=== PATIENT | male | born 1975 | race African-American/Black ===

== ENCOUNTER 2022-03-17 15:53 | Emergency (ER) | payer SELFPAY ==
[~2022-03-17] VITALS: Ht 195.6 cm; Wt 210.0 kg
[2022-03-17] MEDS ORDERED: SODIUM CHLORIDE 0.9% 1,000 ML IV ONE (16:15)
[2022-03-17 16:41] LABS: BASOPHILS % 0.6 % (0.0-2.0); EOSINOPHILS % 0.7 % (0.0-5.0); HEMATOCRIT. 44.5 % (42.0-52.0); HEMOGLOBIN. 14.8 g/dL (14.0-18.0); LYMPHOCYTES % 15.5 % (20.0-50.0); MEAN CORPUSCULAR HEMOGLOBIN 31.9 pg (28.0-32.0); MEAN CORPUSCULAR VOLUME 96.1 fL (80.0-94.0); MEAN PLATELET VOLUME 8.4 fl (7.4-10.4); MONOCYTES % 6.7 % (2.0-8.0); NEUTROPHILS % 76.5 % (40.0-76.0); PLATELET 300 x1000/uL (130-400); RED BLOOD CELL COUNT 4.63 mill/uL (4.7-6.1)
[2022-03-17 17:38] LABS: CHLORIDE 104 mEq/L (98-107)
[2022-03-17 17:46] LABS: ETHANOL BLOOD 179 mg/dL
[2022-03-17 18:18] LABS: *AMPHETAMINES SCREEN URINE NEGATIVE (NEGATIVE); *BARBITURATES SCREEN URINE NEGATIVE (NEGATIVE); *BENZODIAZEPINES SCREEN URINE PRESUMTIVE POSITIVE (NEGATIVE); *COCAINE SCREEN URINE NEGATIVE (NEGATIVE); CANNABINOID URINE SCREEN NEGATIVE (NEGATIVE); METHADONE URINE SCREEN NEGATIVE (NEGATIVE); OPIATES URINE SCREEN NEGATIVE (NEGATIVE); PHENCYCLIDINE URINE SCREEN NEGATIVE (NEGATIVE)
[2022-03-17] MEDS ORDERED: CHLORDIAZEPOXIDE 25MG CAPSULE PO ONE (19:30)
[2022-03-17] MEDS ORDERED: SODIUM CHLORIDE 0.9% 500 ML IV ONE (20:45)
[2022-03-17 22:00] VITALS: BP 156/88
== END 2022-03-17 22:36 | disposition home or self-care (01) ==
LOC: ER 15:53
DX: F10.129 Alcohol abuse with intoxication, unspecified (principal); Y90.6 Blood alcohol level of 120-199 mg/100 ml
CPT/HCPCS: 36415; 80053; 80305; 80320; 82962; 85025; 96360; 99285; J7030; J7040; G0480

== ENCOUNTER 2022-06-16 17:02 | Emergency (ER) | payer OTHER ==
[~2022-06-16] VITALS: Ht 188 cm; Wt 101.0 kg
[2022-06-16 17:16] VITALS: BP 156/96
== END 2022-06-16 23:19 | disposition left against medical advice (07) ==
LOC: ER 17:02
DX: Z53.21 Procedure and treatment not carried out due to patient leaving prior to being seen by health care provider (principal); I50.9 Heart failure, unspecified

== ENCOUNTER 2022-06-26 14:15 | Inpatient (IN) | payer MEDICAID, OTHER ==
[~2022-06-26] VITALS: Ht 185.4 cm; Wt 93.9 kg
[2022-06-26] MEDS ORDERED: NITROGLYCERIN 0.4MG TABLET SL SL PRN (17:45)
[2022-06-26] MEDS ORDERED: ASPIRIN 325MG EC TABLET PO ONE (17:45)
[2022-06-26 17:54] LABS: BASOPHILS % 0.8 % (0.0-2.0); EOSINOPHILS % 1.1 % (0.0-5.0); HEMATOCRIT. 37.7 % (42.0-52.0); LYMPHOCYTES % 23.2 % (20.0-50.0); MEAN CORPUSCULAR HEMOGLOBIN 35.6 pg (28.0-32.0); MEAN CORPUSCULAR VOLUME 103.2 fL (80.0-94.0); MEAN PLATELET VOLUME 8.1 fl (7.4-10.4); MONOCYTES % 10.6 % (2.0-8.0); NEUTROPHILS % 64.3 % (40.0-76.0); PLATELET 286 x1000/uL (130-400); RED BLOOD CELL COUNT 3.65 mill/uL (4.7-6.1); RED CELL DISTRIBUTION WIDTH 14.8 % (11.6-14.6)
[2022-06-26 18:02] LABS: CHLORIDE 108 mEq/L (98-107)
[2022-06-26 18:05] LABS: PARTIAL THROMBOPLASTIN TIME 28.8 sec (23.4-31.0); PROTHROMBIN TIME 10.6 sec (9.6-11.0)
[2022-06-26 18:13] LABS: ETHANOL BLOOD 181 mg/dL
[2022-06-26] MEDS ORDERED: LIDOCAINE HCL/PF 1% 10 MG/ML 5ML VIAL ONE (18:13)
[2022-06-26] MEDS ORDERED: IODIXANOL 320MG/ML 100 ML BOTTLE IV ONE (18:13)
[2022-06-26] MEDS ORDERED: HEPARIN 1000 UNITS/ML 10ML ONE (18:13)
[2022-06-26 20:00] VITALS: BP 176/95
[2022-06-26] MEDS ORDERED: SODIUM CHLORIDE 0.45% 1,000 ML IV SCH ×2 (20:00→21:00)
[2022-06-26 21:00] LABS: BG BASE EXCESS 1.8 mmol/L (-2.0-2.0); BG CARBOXYHEMOGLOBIN 2.4 % (0.5-1.5); BG DEOXYHEMOGLOBIN 7.4 % (0.0-5.0); BG HCO3 ACT 28.7 mmol/L (22.0-26.0); BG METHEMOGLOBIN 0.4 % (0.0-1.5); BG OXYGEN SATURATION 92.4 % (92.0-98.5); BG OXYHEMOGLOBIN 89.8 % (94.0-97.0); BG PCO2 54.4 mmHg (35.0-45.0); BG PO2 70.5 mmHg (75.0-100.0); BG SAMPLE SITE LEFT RADIAL; BG TOTAL HEMOGLOBIN 13.8 g/dL (12.0-18.0); BG VENT MODE NASAL CANNULA
[2022-06-26] MEDS ORDERED: ATROPINE SULFATE 1MG/10ML SYR IV PRN (21:00)
[2022-06-26] MEDS ORDERED: ACETAMINOPHEN 325MG TABLET PO PRN (21:00)
[2022-06-26 21:27] LABS: BASOPHILS % 1.7 % (0.0-2.0); EOSINOPHILS % 0.9 % (0.0-5.0); HEMOGLOBIN. 13.1 g/dL (14.0-18.0); LYMPHOCYTES % 26.7 % (20.0-50.0); MEAN CORPUSCULAR HEMOGLOBIN 35.8 pg (28.0-32.0); MEAN CORPUSCULAR VOLUME 103.8 fL (80.0-94.0); MEAN PLATELET VOLUME 8.1 fl (7.4-10.4); MONOCYTES % 11.6 % (2.0-8.0); NEUTROPHILS % 59.1 % (40.0-76.0); PLATELET 282 x1000/uL (130-400); RED BLOOD CELL COUNT 3.66 mill/uL (4.7-6.1); RED CELL DISTRIBUTION WIDTH 14.6 % (11.6-14.6)
[2022-06-26 21:42] LABS: CHLORIDE 108 mEq/L (98-107)
[2022-06-26 22:34] LABS: *AMPHETAMINES SCREEN URINE NEGATIVE (NEGATIVE); *BARBITURATES SCREEN URINE NEGATIVE (NEGATIVE); *BENZODIAZEPINES SCREEN URINE PRESUMTIVE POSITIVE (NEGATIVE); *COCAINE SCREEN URINE NEGATIVE (NEGATIVE); CANNABINOID URINE SCREEN NEGATIVE (NEGATIVE); METHADONE URINE SCREEN NEGATIVE (NEGATIVE); OPIATES URINE SCREEN NEGATIVE (NEGATIVE); PHENCYCLIDINE URINE SCREEN NEGATIVE (NEGATIVE)
[2022-06-27] VITALS: BP 159/94
[2022-06-27 04:00] VITALS: BP 168/100
[2022-06-27 06:45] LABS: BASOPHILS % 0.8 % (0.0-2.0); HEMATOCRIT. 37.3 % (42.0-52.0); HEMOGLOBIN. 13.1 g/dL (14.0-18.0); LYMPHOCYTES % 19.1 % (20.0-50.0); MEAN CORPUSCULAR HEMOGLOBIN 36.2 pg (28.0-32.0); MEAN CORPUSCULAR VOLUME 103.3 fL (80.0-94.0); MONOCYTES % 11.6 % (2.0-8.0); NEUTROPHILS % 67.5 % (40.0-76.0); PLATELET 283 x1000/uL (130-400); RED BLOOD CELL COUNT 3.61 mill/uL (4.7-6.1); RED CELL DISTRIBUTION WIDTH 14.9 % (11.6-14.6)
[2022-06-27 07:06] LABS: CHLORIDE 106 mEq/L (98-107)
[2022-06-27] MEDS ORDERED: HYDROCODONE/ACETAMINOPHEN 10/325MG TABLET PO PRN ×2 (07:45)
[2022-06-27] MEDS ORDERED: CLONIDINE 0.1MG TABLET PO PRN (07:45)
[2022-06-27 08:00] VITALS: BP 172/101
[2022-06-27] MEDS ORDERED: NALOXONE HCL 0.4MG/ML VIAL IV PRN (08:00)
[2022-06-27] MEDS ORDERED: HYDROCODONE/ACETAMINOPHEN 5/325MG TABLET PO PRN (08:30)
[2022-06-27 08:55] VITALS: BP 172/101
[2022-06-27] MEDS ORDERED: ASPIRIN 81MG TABLET PO SCH (09:00)
[2022-06-27] MEDS ORDERED: AMLODIPINE 5MG TABLET PO SCH (09:00)
[2022-06-27] MEDS ORDERED: MULTIVITAMINS,THER W-MINERALS TABLET PO SCH (09:30)
[2022-06-27] MEDS ORDERED: FOLIC ACID 1MG TABLET PO SCH (09:30)
[2022-06-27] MEDS ORDERED: THIAMINE HCL 100MG TABLET PO SCH (09:30)
[2022-06-27 10:33] LABS: HDL CHOLESTEROL 57 mg/dL (40-59); LDL CHOLESTEROL 66 mg/dL (5-100); PHOSPHORUS 4.3 mg/dL (2.5-4.9); TOTAL IRON BINDING CAPACITY 288 ug/dL (250-450)
[2022-06-27] MEDS ORDERED: FOLIC ACID 1 MG, THIAMINE HCL 100 MG, MVI, ADULT NO.1 10 ML in DEXTROSE 5% WATER 1,000 ML IV ONE ×4 (11:00)
[2022-06-27 11:30] LABS: FOLIC ACID (FOLATE) SERUM 9.2 ng/mL (>5.38)
== END 2022-06-27 16:40 | disposition left against medical advice (07) | DRG 52 ==
LOC: ER 14:15 → CCL 18:43 → 3WST 19:00
PROVIDERS: ADMIT Internal Medicine; ATTEND Internal Medicine
PROC: 4A023N7 Measurement of Cardiac Sampling and Pressure, Left Heart, Percutaneous Approach (ICD-10-PCS; principal; 2022-06-26)
PROC: B2111ZZ Fluoroscopy of Multiple Coronary Arteries using Low Osmolar Contrast (ICD-10-PCS; 2022-06-26)
PROC: B41F1ZZ Fluoroscopy of Right Lower Extremity Arteries using Low Osmolar Contrast (ICD-10-PCS; 2022-06-26)
DX: G92.8 Other toxic encephalopathy (principal); I42.9 Cardiomyopathy, unspecified; I50.9 Heart failure, unspecified; I11.0 Hypertensive heart disease with heart failure; F10.129 Alcohol abuse with intoxication, unspecified; D53.9 Nutritional anemia, unspecified; E78.5 Hyperlipidemia, unspecified; F41.9 Anxiety disorder, unspecified; F17.210 Nicotine dependence, cigarettes, uncomplicated; R56.9 Unspecified convulsions; R07.89 Other chest pain; E66.9 Obesity, unspecified; Z82.49 Family history of ischemic heart disease and other diseases of the circulatory system; Z68.27 Body mass index [BMI] 27.0-27.9, adult; Z59.00 Homelessness unspecified; Y92.89 Other specified places as the place of occurrence of the external cause
CPT/HCPCS: 36415; 36600; 71045; 80048; 80053; 80061; 80305; 80320; 82140; 82375; 82607; 82728; 82746; 82805; 83036; 83540; 83550; 83735; 83880; 84100; 84443; 84484; 85025; 93005; 99291; C1893; J1644; J3411; J3490; J7070; L1830; Q9967; G0480